=== PATIENT | male | born 1990 | race American Indian/Alaskan Native ===

== ENCOUNTER 2021-08-22 10:38 | Emergency (ER) | payer SELFPAY ==
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
[2021-08-22 11:14] VITALS: BP 142/79
== END 2021-08-22 11:24 | disposition home or self-care (01) ==
LOC: ED 10:38
DX: S61.216A Laceration without foreign body of right little finger without damage to nail, initial encounter (principal); X58.XXXA Exposure to other specified factors, initial encounter; Y93.89 Activity, other specified; Y92.89 Other specified places as the place of occurrence of the external cause; Y99.8 Other external cause status
CPT/HCPCS: 99282

== ENCOUNTER 2021-09-27 12:08 | Emergency (ER) | payer SELFPAY ==
[2021-09-27 13:15] VITALS: BP 130/89
== END 2021-09-27 13:37 | disposition left against medical advice (07) ==
LOC: ED 12:08
DX: M54.9 Dorsalgia, unspecified (principal); Z53.21 Procedure and treatment not carried out due to patient leaving prior to being seen by health care provider; V89.2XXA Person injured in unspecified motor-vehicle accident, traffic, initial encounter; Y93.89 Activity, other specified; Y92.89 Other specified places as the place of occurrence of the external cause; Y99.8 Other external cause status